=== PATIENT | male | born 1970 | race Caucasian/White ===

== ENCOUNTER 2022-10-19 08:51 | Emergency (ER) | payer BC ==
--- OUTSIDE RECORDS SUMMARY | 2022-10-19 08:54 | XMS REPORT | Continuity of Care Document ---
:1970 Author Organization [facility] t Address [address] [place] [address] Care Team Providers Name Role Phone Magan Reed MD Primary Care Physician [phone] LULY HYATT Attending Clinician Unavailable LULY HYATT Admitting Clinician Unavailable Problems Condition Condition Condition Status Onset Resolution Last Treating Co mments Source Name Details Category Date Date Treatment Clinician Date Colon Colon Disease Active [facility] cancer cancer 09-17 st screening screening 00:00: Hosp valentin 00 l Allergies, Adverse Reactions, Alerts This patient has no known allergies or adverse reactions. Family History Family Member Diagnosis Comments Start Date Stop Date Source Natural father Cancer [facility] Social History Social Habit Start Date Stop Date Quantity Comments Source Gender identity [facility] Sexual orientation [facility] History of Social 2020-11-06 2020-11-[address] function 00:00:00 00:00:00 Hospital Tobacco use and 2019-02-07 2019-02-07 Smokeless [facility] exposure 00:00:00 00:00:00 tobacco non-user Hospital Sex Assigned At [birth year] [facility] 00:[facility] Smoking Status Start Date Stop Date Source Never smoked tobacco [facility] Medications Ordered Filled Start Stop Current Ordering Indication Dosage Frequency Signature Comments Components Source Medication Medication Date Date Medication? Clinician (SIG) Name Name zinc Yes 1{capsu QD Take 1 [facility] sulfate 8-18 le} capsule by st (ZINCATE) 11:33: mouth [facility]ospita 50 mg zinc 04 daily. l (220 mg) capsule ascorbic Yes 250mg QD Take 250 Meth collin acid, 8-[address] vitamin C, 11:33: mouth Hospit a (VITAMIN C) 04 daily. l 250 MG tablet sod Yes 1{kit} Q.5D Take 1 kit Metho di picosulf-ma 6-[address] g ox-citric 00:00: (two) Hospi ta ac 00 times a l (Clenpiq) day. Take 10 mg-3.5 one bottle gram -12 twice a gram/160 mL day as solution directed Procedures This patient has no known procedures. Plan of Care Planned Activity Planned Date Details Comments Source Future Scheduled 2022-09-03 [facility] Test 19:02:10 malignant neoplasm of colon (procedure) [code = 480608834] Future Scheduled 2022-09-03 [facility] for [facility] Test 19:02:10 malignant neoplasm of colon (procedure) [code = 409056638] Future Scheduled 2022-09-03 [facility] Test 19:02:10 malignant neoplasm of colon (procedure) [code = 175908095] Future Scheduled 2022-09-03 COVID-[address] [facility] Test 19:02:10 (#1) [code = COVID-19 VACCINE (#1)] Future Scheduled 2022-09-03 Hepatitis C [facility] Test 19:02:10 screening (procedure) [code = 828994610] Future Scheduled 2022-09-03 SHINGLES VACCINES [facility] Test 19:02:10 (1 of 2) [code = SHINGLES VACCINES (1 of 2)] Future Scheduled 2022-09-03 INFLUENZA VACCINE [facility] Test 19:02:10 [code = INFLUENZA VACCINE] Future Scheduled 2022-09-03 [facility] for [facility] Test 19:02:10 malignant neoplasm of colon (procedure) [code = 463220114] Future Scheduled 2022-09-03 [facility] for [facility] Test 19:02:10 malignant neoplasm of colon (procedure) [code = 309282546] Encounters Start End Encounter Admission Attending Care Care Encounter Source Date/Time Date/Time Type Type Clinicians Facility Department ID 2020-11-05 2020-11-05 Outpatient [facility] 021 [id number] Mcdonald 00:00:00 00:00:00 LULY [address] 2020-09-17 2020-09-17 Outpatient HYATT, [facility] [id number] Mcdonald 00:00:00 00:00:00 LULY [address] Results This patient has no known results.
[2022-10-19] MEDS ORDERED: NA CHLORIDE 0.9% 1,000 ML ONE ×2 (09:21→12:56)
[2022-10-19] MEDS ORDERED: KETOROLAC 30 MG/ML INJ ONE (09:21)
[2022-10-19] MEDS ORDERED: ONDANSETRON 4 MG/2 ML VIAL ONE (09:21)
[2022-10-19] MEDS ORDERED: MORPHINE 4 MG/ML SYR ONE ×2 (09:21→11:05)
[2022-10-19] MEDS ORDERED: FAMOTIDINE 20 MG/2 ML VIAL IV ONE (09:21)
[2022-10-19 09:38] LABS: Absolute Lymphocytes (CBC) 2.4 K/uL (0.7-4.9); Hematocrit 44.1 % (39.6-49.0); MCV 88.6 fL (80-100); MPV 8.5 fL (7.6-11.3); RBC Red Blood Cell Count 4.98 M/uL (4.33-5.43)
[2022-10-19 09:48] LABS: Specific Gravity 1.016 (1.005-1.030); Urine Bacteria None Seen /HPF (<20); Urine Bilirubin NEGATIVE (Negative); Urine Blood 3+ (OVER) (Negative); Urine Clarity Extremely Turbid (Clear); Urine Color Colorless (Yellow); Urine Glucose NEGATIVE (Negative); Urine Mucus Slight /HPF (None Seen); Urine Protein NEGATIVE (Negative); Urine RBC >50 /HPF (None Seen); Urine Urobilinogen Normal (Normal)
[2022-10-19 09:56] LABS: Albumin 4.1 g/dL (3.4-5.0); Bilirubin Total 0.4 mg/dL (0.2-1.0); Potassium 3.9 mEq/L (3.5-5.1); Protein, Total 8.2 g/dL (6.4-8.2)
--- NOTE | 2022-10-19 10:42 | RAD REPORT ---
EXAM DESCRIPTION: CTAbdomen Pelvis W Contrast - 10/19/2022 10:31 am CLINICAL HISTORY: Abdominal pain. FLANK PAIN COMPARISON: No comparisons TECHNIQUE: Biphasic CT imaging of the abdomen and pelvis was performed with 100 ml non-ionic IV cont rast. All CT scans are performed using dose optimization technique as appropriate and may include automated exposure control or mA/KV adjustment according to patient size. FINDINGS: The lung bases are clear. The liver, spleen, pancreas, adrenal glands and left kidney are within normal limits. 4-5 mm calculus proximal right ureter is present with mild right hydronephrosis. No bowel obstruction, free air, free fluid or abscess. Moderate stool retained throughout the colon. Appendectomy. No evidence of significant lymphadenopathy. No suspicious bony findings. IMPRESSION: 4-5 mm stone proximal right ureter with mild right hydronephrosis. No left-sided stone s een.
[2022-10-19] MEDS ORDERED: MAGNESIUM SULFATE 1 gm IVPB 1 GM/100 ML BAG IV ONE (11:05)
[2022-10-19] MEDS ORDERED: TAMSULOSIN 0.4 MG SR CAP ONE (11:05)
[2022-10-19] MEDS ORDERED: MORPHINE 2 MG/ML SYR ONE (13:13)
--- NOTE | 2022-10-19 14:21 | ER ---
Nurse's Notes [facility] Name: Jovanny Sosa Age: 52 yrs Sex: Male : 1970 Arrival Date: 10/19/2022 Time: 08:51 Bed 19 Private MD: Diagnosis: Calculus of kidney with calculus of ureter Presentation: 10/19 09:04 Chief complaint: Patient states: right flank pain, nausea, dark colored urine since an iw hour ago. Coronavirus screen: At this time, the client does not indicate any symptoms associated with coronavirus-19. Ebola Screen: Patient negative for fever greater than or equal to 101.5 degrees Fahrenheit, and additional compatible Ebola Virus Disease symptoms Patient denies exposure to infectious person. Patient denies travel to an Ebola-affected area in the 21 days before illness onset. No symptoms or risks identified at this time. Initial Sepsis Screen: Does the patient meet any 2 criteria? No. Patient's initial sepsis screen is negative. Does the patient have a suspected source of infection? No. Patient's initial sepsis screen is negative. Risk Assessment: Do you want to hurt yourself or someone else? Patient reports no desire to harm self or others. Onset of symptoms was October 19, 2022. 09:04 Method Of Arrival: Ambulatory iw 09:04 Acuity: BAL 3 iw Triage Assessment: 09:42 General: Appears uncomfortable. General: Behavior is calm, cooperative. Pain: Complains db of pain in back, groin, right abd. Historical: - Allergies: 09:05 No Known Allergies; iw - Home Meds: 09:05 None [Active]; iw - PMHx: 09:05 None; iw - PSHx: 09:05 Appendectomy; iw - Social history:: Smoking status: Patient denies any tobacco usage or history of. Screenin:16 [facility] ED Fall Risk Assessment (Adult) History of falling in the last 3 months, db including since admission No falls in past 3 months (0 pts) Confusion or Disorientation No (0 pts) Intoxicated or Sedated No (0 pts) Impaired Gait No (0 pts) Mobility Assist Device Used No (0 pt) Altered Elimination No (0 pt) Score/Fall Risk Level 0 - 2 = Low Risk Oriented to surroundings, Maintained a safe environment. Abuse screen: Denies threats or abuse. Denies injuries from another. Nutritional screening: No deficits noted. Tuberculosis screening: No symptoms or risk factors identified. Assessment: 09:15 Reassessment: patient ambulatory to restroom. db 09:15 General: Appears in no apparent distress. comfortable, Behavior is calm, cooperative. db Pain: Complains of pain in back. Neuro: Level of Consciousness is awake, alert, obeys commands, Oriented to person, place, time, situation. Respiratory: Airway is patent Respiratory effort is even, unlabored, Respiratory pattern is regular, symmetrical. GI: Abdomen is flat, non-distended. 10:23 Reassessment: Patient appears in no apparent distress at this time. Patient and/or db family updated on plan of care and expected duration. Pain level reassessed. Patient is alert, oriented x 3, equal unlabored respirations, skin warm/dry/pink. patient to CT. 11:30 Reassessment: Patient appears in no apparent distress at this time. Patient and/or db family updated on plan of care and expected duration. Pain level reassessed. Patient is alert, oriented x 3, equal unlabored respirations, skin warm/dry/pink. 12:30 Reassessment: Patient appears in no apparent distress at this time. Patient and/or db family updated on plan of care and expected duration. Pain level reassessed. Patient is alert, oriented x 3, equal unlabored respirations, skin warm/dry/pink. 13:15 Reassessment: Patient appears in no apparent distress at this time. Patient and/or db family updated on plan of care and expected duration. Pain level reassessed. Patient is alert, oriented x 3, equal unlabored respirations, skin warm/dry/pink. 14:15 Reassessment: Patient appears in no apparent distress at this time. Patient and/or db family updated on plan of care and expected duration. Pain level reassessed. Patient is alert, oriented x 3, equal unlabored respirations, skin warm/dry/pink. Patient states feeling better. Patient states symptoms have improved. General: Appears in no apparent distress. comfortable, Behavior is calm, cooperative. Vital Signs: 09:00 BP 143 / 86; Pulse 52; Resp 16; Pulse Ox 100% on R/A; Pain 7/10; db 09:00 Pain 0/10; db 09:04 BP 151 / 88; Pulse 52; Resp 16; Temp 98; Pulse Ox 99% on R/A; Weight 124.74 kg; Height iw 5 ft. 10 in. ; Pain 6/10; 10:00 BP 124 / 78; Pulse 47; Resp 16; Pulse Ox 97% on R/A; db 09:04 Body Mass Index 39.46 (124.74 kg, 177.8 cm) iw 09:00 Pain Scale: Adult db 09:00 Pain Scale: Adult db 09:04 Pain Scale: Adult iw ED Course: 08:55 Patient arrived in ED. im 08:56 Lissett Magallanes PA-C is PHCP. sb4 08:56 Guevara Murillo MD is Attending Physician. sb4 09:00 Maryanne Toavr, EAST[place] is Primary Nurse. db 09:05 Triage completed. iw 09:06 Arm band placed on. iw 09:32 Inserted saline lock: 20 gauge in right forearm, using aseptic technique. Blood db collected. 09:42 Patient has correct armband on for positive identification. Bed in low position. Call db light in reach. Side rails up X 1. Provided Education on:. 10:32 CT Abd/Pelvis - IV Contrast Only In Process Unspecified. EDMS 14:20 Ricardo Kaplan MD is Referral Physician. sb4 14:38 No provider procedures requiring assistance completed. IV discontinued, intact, db bleeding controlled, No redness/swelling at site. Administered Medications: 09:35 Drug: NS 0.9% IV 1000 ml Route: IV; Rate: 1 bolus; Site: right forearm; db 11:05 Follow up: Response: No adverse reaction; IV Status: Completed infusion; IV Intake: db 1000ml 09:35 Drug: Ondansetron IVP 4 mg Route: IVP; Site: right forearm; db 11:05 Follow up: Response: No adverse reaction db 09:35 Drug: morphine IVP or IV 4 mg Route: IVP; Infused Over: 4 mins; Site: right forearm; db 11:05 Follow up: Response: No adverse reaction db 09:37 Drug: TORadol - Ketorolac IVP 15 mg Route: IVP; Site: right forearm; db 11:05 Follow up: Response: No adverse reaction db 09:38 Drug: Famotidine IVP 20 mg Route: IVP; Site: right forearm; db 11:05 Follow up: Response: No adverse reaction db 10:58 Drug: Flomax PO 0.4 mg Route: PO; db 10:59 Drug: morphine IVP or IV 2 mg Route: IVP; Infused Over: 4 mins; Site: right forearm; db 11:00 Drug: Magnesium Sulfate IVPB 1 grams Route: IVPB; Infused Over: 1 hrs; Site: right db forearm; 12:47 Drug: NS 0.9% IV 1000 ml Route: IV; Rate: 1 bolus; Site: right antecubital; db 13:05 Drug: morphine IVP or IV 2 mg Route: IVP; Infused Over: 4 mins; Site: right antecubital;db Medication: 14:38 VIS not applicable for this client. db Intake: 11:05 IV: 1000ml; Total: 1000ml. db Outcome: 14:21 Discharge ordered by . sb4 14:37 Discharged to home ambulatory. db 14:37 Discharged to home with family. 14:37 Condition: stable 14:37 Discharge instructions given to patient, family, Instructed on discharge instructions, follow up and referral plans. Prescriptions given X 3. 14:38 Patient left the ED. db Signatures: Dispatcher [employer] EDMS Lynsey Ott RN RN iw Maryanne Tovar RN RN db Lissett Magallanes PA-C PATanya Lopez Corrections: (The following items were deleted from the chart) 10:23 09:00 BP 143 / 86; Pulse 52bpm; Resp 16bpm; Pulse Ox 100% RA; db db 14:37 14:15 Reassessment: Patient appears in no apparent distress at this time. Patient db and/or family updated on plan of care and expected duration. Pain level reassessed. Patient is alert, oriented x 3, equal unlabored respirations, skin warm/dry/pink. db
--- NOTE | 2022-10-19 14:21 | EDPHYS ---
Physician Documentation [facility] Name: Jovanny Sosa Age: 52 yrs Sex: Male : 1970 Arrival Date: 10/19/2022 Time: 08:51 Bed 19 Private MD: ED Physician Guevara Murillo HPI: 10/19 09:16 This 52 yrs old Male presents to ER via Ambulatory with complaints of right flank pain. sb4 09:16 Onset: The symptoms/episode began/occurred this morning. Associated signs and symptoms: sb4 Pertinent positives: hematuria, Pertinent negatives: dysuria, fever, vomiting. Modifying factors: The patient symptoms are alleviated by nothing, the patient symptoms are aggravated by nothing. The patient has not experienced similar symptoms in the past. The patient has not recently seen a physician. Patient states he started experiencing right-sided flank pain about an hour ago that radiates to his right abdomen. He also states that he noticed his urine looked darker and he was having some dribbling while attempting to urinate. Denies any history of kidney stones or pertinent medical history. Historical: - Allergies: 09:05 No Known Allergies; iw - Home Meds: 09:05 None [Active]; iw - PMHx: 09:05 None; iw - PSHx: 09:05 Appendectomy; iw - Social history:: Smoking status: Patient denies any tobacco usage or history of. ROS: 09:16 Constitutional: Negative for fever, chills, and weight loss, Eyes: Negative for injury, sb4 pain, redness, and discharge, ENT: Negative for injury, pain, and discharge, Cardiovascular: Negative for chest pain, palpitations, and edema, Respiratory: Negative for shortness of breath, cough, wheezing, and pleuritic chest pain, MS/Extremity: Negative for injury and deformity, Skin: Negative for injury, rash, and discoloration. 09:16 Abdomen/GI: Negative for abdominal pain, nausea, vomiting, diarrhea, and constipation. 09:16 Abdomen/GI: 09:16 Back: Positive for flank pain, on the right. 09:16 : Positive for hematuria, Negative for injury or acute deformity, bladder incontinence, foul smelling urine, penile discharge, penile pain, testicular pain 09:16 All other systems are negative. sb4 Exam: 09:16 Constitutional: This is a well developed, well nourished patient who is awake, alert, sb4 and in no acute distress. Head/Face: Normocephalic, atraumatic. Eyes: Extra-ocular motions intact. Periorbital areas with no swelling, redness, or edema. Cardiovascular: Regular rate and rhythm with a normal S1 and S2. Respiratory: Lungs have equal breath sounds bilaterally, clear to auscultation and percussion. No rales, rhonchi or wheezes noted. No increased work of breathing, no retractions or nasal flaring. Abdomen/GI: Soft, non-tender, no distension. Skin: Warm, dry with normal turgor. Normal color with no rashes, no lesions, and no evidence of cellulitis. MS/ Extremity: Pulses equal, no cyanosis. Neurovascular intact. Full, normal range of motion. 09:16 Back: CVA tenderness, that is mild, is noted on the right. Vital Signs: 09:00 BP 143 / 86; Pulse 52; Resp 16; Pulse Ox 100% on R/A; Pain 7/10; db 09:00 Pain 0/10; db 09:04 BP 151 / 88; Pulse 52; Resp 16; Temp 98; Pulse Ox 99% on R/A; Weight 124.74 kg; Height iw 5 ft. 10 in. ; Pain 6/10; 10:00 BP 124 / 78; Pulse 47; Resp 16; Pulse Ox 97% on R/A; db 09:04 Body Mass Index 39.46 (124.74 kg, 177.8 cm) iw 09:00 Pain Scale: Adult db 09:00 Pain Scale: Adult db 09:04 Pain Scale: Adult iw MDM: 08:56 Patient medically screened. sb4 09:16 Differential diagnosis: nephrolithiasis, ureterolithiasis, BPH, pyelonephritis, UTI, sb4 ureteritis. 11:08 Data reviewed: vital signs, nurses notes, lab test result(s), radiologic studies, CT sb4 scan, and as a result, I will discharge patient. Counseling: I had a detailed discussion with the patient and/or guardian regarding: the historical points, exam findings, and any diagnostic results supporting the discharge/admit diagnosis, lab results, radiology results, to return to the emergency department if symptoms worsen or persist or if there are any questions or concerns that arise at home. Medication response: morphine markedly relieved the patient's pain. Symptoms have improved. Awaiting: will monitor patient for an hour or so to monitor and control pain level and await passage of stone, he is agreeable. 14:20 Consideration of Admission/Observation Escalation of care including sb4 admission/observation considered. 10/19 09:06 Order name: CBC with Diff; Complete Time: 09:41 sb4 10/19 09:06 Order name: CMP; Complete Time: 09:57 sb4 10/19 09:06 Order name: Lipase; Complete Time: 09:57 sb4 10/19 09:06 Order name: Urinalysis w/ reflexes; Complete Time: 09:49 sb4 10/19 09:52 Order name: Urine Culture EDMS 10/19 09:06 Order name: CT Abd/Pelvis - IV Contrast Only; Complete Time: 10:43 sb4 10/19 09:06 Order name: IV Saline Lock; Complete Time: 09:35 sb4 10/19 09:06 Order name: Labs collected and sent; Complete Time: 09:35 sb4 Administered Medications: 09:35 Drug: NS 0.9% IV 1000 ml Route: IV; Rate: 1 bolus; Site: right forearm; db 11:05 Follow up: Response: No adverse reaction; IV Status: Completed infusion; IV Intake: db 1000ml 09:35 Drug: Ondansetron IVP 4 mg Route: IVP; Site: right forearm; db 11:05 Follow up: Response: No adverse reaction db 09:35 Drug: morphine IVP or IV 4 mg Route: IVP; Infused Over: 4 mins; Site: right forearm; db 11:05 Follow up: Response: No adverse reaction db 09:37 Drug: TORadol - Ketorolac IVP 15 mg Route: IVP; Site: right forearm; db 11:05 Follow up: Response: No adverse reaction db 09:38 Drug: Famotidine IVP 20 mg Route: IVP; Site: right forearm; db 11:05 Follow up: Response: No adverse reaction db 10:58 Drug: Flomax PO 0.4 mg Route: PO; db 10:59 Drug: morphine IVP or IV 2 mg Route: IVP; Infused Over: 4 mins; Site: right forearm; db 11:00 Drug: Magnesium Sulfate IVPB 1 grams Route: IVPB; Infused Over: 1 hrs; Site: right db forearm; 12:47 Drug: NS 0.9% IV 1000 ml Route: IV; Rate: 1 bolus; Site: right antecubital; db 13:05 Drug: morphine IVP or IV 2 mg Route: IVP; Infused Over: 4 mins; Site: right antecubital;db Disposition: 14:55 Co-signature as Attending Physician, Guevara Murillo MD I reviewed the patient's care rn provided by the Advanced Practice Provider and agree with the diagnosis and treatment plan. Disposition Summary: 10/19/22 14:21 Discharge Ordered Location: Home sb4 Problem: new sb4 Symptoms: are resolved sb4 Condition: Stable sb4 Diagnosis - Calculus of kidney with calculus of ureter sb4 Followup: sb4 - With: - When: As needed - Reason: Recheck today's complaints, Continuance of care, Re-evaluation by your physician Discharge Instructions: - Discharge Summary Sheet sb4 - Kidney Stones sb4 Forms: - Medication Reconciliation Form sb4 - Thank You Letter sb4 - Antibiotic Education sb4 - Prescription Opioid Use sb4 - Patient Portal Instructions sb4 Prescriptions: - Flomax 0.4 mg Oral capsule - take 1 capsule by ORAL route every day at bedtime for 10 days; 10 capsule; sb4 Refills: 0, Product Selection Permitted - ketorolac 10 mg Oral tablet - take 1 tablet by ORAL route every 4 to 6 hours for 3 days as needed for pain; sb4 do not exceed 4 doses per 24 hrs; 12 tablet; Refills: 0, Product Selection Permitted - Tramadol 50 mg Oral Tablet - take 1 tablet by ORAL route every 8 hours as needed; 12 tablet; Refills: 0, sb4 Product Selection Permitted Signatures: Dispatcher [employer] Lynsey Membreno, RN Guevara Yeh MD MD rn Benton, Danielle, RN Lissett Pino, BRENDA GUTIERREZ sb4
[2022-10-19 14:49] VITALS: TEMP 98
[2022-10-19 14:51] VITALS: BP 124/78; O2SAT 97
== END 2022-10-19 14:38 | disposition home or self-care (01) ==
LOC: ER 08:51
DX: N20.0 Calculus of kidney (principal); N20.1 Calculus of ureter
CPT/HCPCS: 87088; 85025; 81001; 87086; 36415; 83690; 80053; 74177; Q9967; J3475; J2270; J2405; J7030 ×2